=== PATIENT | male | born 1970 | race Caucasian/White ===

== ENCOUNTER → 2016-08-05 | Outpatient (CLI) | payer OTHER ==
--- NOTE | 2016-08-05 22:25 | PN ---
This is a 46-year-old male patient with morbid obesity, COPD, severe obstructive sleep apnea, chronic hypoxic respiratory failure and chronic hypercapnic respiratory failure with right-sided heart failure. The patient is a chronic smoker. The patient also suffers from severe obstructive sleep apnea/obesity hypoventilation syndrome/chronic hypercapnic respiratory failure. The patient was seen in the office in April 2016. Back then he was having difficulties with older CPAP unit which was essentially broken and he was also having difficulties with his CPAP mask, which he had duct taped and made multiple adjustments to keep it running. I gave the patient a loaner CPAP unit and I put him on CPAP pressure of 17 cm of water. I also gave him an AirFit F10 full face mask. The patient was supposed to come back for reevaluation and the intention was to give him a new CPAP machine. The patient failed to show up over the past 3 months and he is coming in today for the above-mentioned problems. I checked his compliancy on his loaner CPAP machine and the treatment is very successful as the patient is sleeping more than 9 hours on average and his AHI while on treatment is down to 1.6. He is still set at a CPAP pressure of 17 cm of water. He has no complaints. 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 He does longer distances and all the way down to [place]. He is on oxygen at all times and I checked him on 2 liters and his pulse ox around 88%. He is still smoking unfortunately. BP is 148/80, pulse 100, respiration 16, temperature 98.1, saturation is 89% on 2 liters of oxygen by nasal cannula. Weight is 419. Height is 5 foot 10. Body mass index 60. GENERAL APPEARANCE: Obese, calm, comfortable. HEENT: Crowding posterior pharynx. There is no goiter or neck mass. Uvula is not seen. LUNGS: Diminished; otherwise clear. Heart sounds are distant positive S1, S2. ABDOMEN: Soft, obese, nontender. Organs cannot be palpated. No ascites. No direct tenderness. No rebound tenderness or guarding. EXTREMITIES: Chronic edema lower extremities bilaterally. IMPRESSION: 1. Severe obstructive sleep apnea, currently utilizing CPAP at a pressure of 17 cm of water and treatment has been successful yet the patient needs to be evaluated to be confirmed and offered a new CPAP unit. 2. Hypersomnia, improved with CPAP therapy. 3. Morbid obesity with a body mass index of 60. 4. Chronic obstructive pulmonary disease. 5. Chronic hypoxic respiratory failure. 6. Chronic hypercapnic respiratory failure. 7. Secondary erythrocytosis. 8. Right-sided heart failure. 9. Chronic lower extremity edema. 10. Hypertension. 11. History of smoking. PLAN: 1. Set up this patient for a split-night study to confirm and at the same time offer treatment. I think the patient will ultimately need a new CPAP machine. May still use the AirFit F10 fullface mask. The pressure needs to be determined at time of the titration; however, it is going to be probably a pressure of 17 cm of water. The need for oxygen will be also decided at the time of the titration. 2. Encourage weight loss. 3. Smoking cessation counseling. 4. Oxygen therapy at all times knowing that the patient is chronic hypoxemic. 5. Diuretics to improve lower extremity edema. 6. Follow-up with the pulmonary clinic, follow up with Dr. Roth and follow up with me in the office following the split-night study.
== END | disposition home or self-care (01) ==
LOC: SLEEP 13:34
PROVIDERS: ATTEND Internal Medicine Critical Care Medicine
DX: G47.33 Obstructive sleep apnea (adult) (pediatric) (principal); G47.10 Hypersomnia, unspecified; E66.01 Morbid (severe) obesity due to excess calories; Z68.44 Body mass index [BMI] 60.0-69.9, adult; J44.9 Chronic obstructive pulmonary disease, unspecified; J96.11 Chronic respiratory failure with hypoxia; J96.12 Chronic respiratory failure with hypercapnia; D75.1 Secondary polycythemia; R60.0 Localized edema; I10 Essential (primary) hypertension; F17.210 Nicotine dependence, cigarettes, uncomplicated

== ENCOUNTER 2016-12-14 21:34 | Emergency (ER) | payer OTHER ==
[2016-12-14 22:12] VITALS: BP 141/79; PULSE 107; RESP 20; TEMP 98.1
--- NOTE | 2016-12-14 22:47 | ED ---
Lower Extremity Injury HPI - General Chief Complaint: Extremity Injury, Lower Stated Complaint: Foot Pain Time Seen by Provider: 12/14/16 22:23 Source: patient Mode of arrival: wheelchair Limitations: no limitations - History of Present Illness Initial Comments: Patient is a 46-year-old male with medical history significant for chronic hypoxic respiratory failure on home oxygen, obstructive sleep apnea, obesity, and chronic obstructive pulmonary disease presenting to the emergency department with chief complaint of right foot pain and swelling. Patient states that he was trying to loose weight and believe he has been overexerting his foot by walking too much. Patient states that he started experiencing right foot pain approximately 2 weeks ago which has progressively increased in intensity and patient states he is now having a difficult time putting any weight on his foot. Patient mostly complains of pain to the dorsal aspect of his right foot proximal to his third fourth and fifth toe. Patient denies previous injury or surgery to his right lower extremity. Patient is currently rating his pain 0 out of 10, but 8/10 with movement and walking. He states he is taking Motrin for pain at home which provides relief. Patient denies recent illness, fevers, nausea, vomiting, increased shortness of breath, chest pain, or abdominal pain. Patient states he is on oxygen and follows with Dr. Blanco in the outpatient setting. Patient states he is on 3 L of oxygen at home but his battery on his tank is running low so he turned it down to 2 L until he get back home and charge it. Patient states that his oxygen saturation is usually 87 or 88%. Patient states he has an appointment to see Dr. Blanco early next week. - Related Data Home Medications Medication Instructions Recorded Confirmed Bisoprolol-Hctz 10-6.25 mg [Ziac 1 each PO DAILY 09/30/15 12/14/16 10-6.25] Furosemide [Lasix] 40 mg PO BID 09/30/15 12/14/16 Albuterol Inhaler [Ventolin Hfa 1 - 2 puff INHALATION Q6HR PRN 12/14/16 12/14/16 Inhaler] Allergies Allergy/AdvReac Type Severity Reaction Status Date / Time No Known Allergies Allergy Verified 09/30/15 16:22 Review of Systems ROS Statement: Those systems with pertinent positive or pertinent negative responses have been documented in the HPI. ROS Other: All systems not noted in ROS Statement are negative. Past Medical History Past Medical History: Blood Disorder, Hypertension Additional Past Medical History / Comment(s): ENLARGED HEART History of Any Multi-Drug Resistant Organisms: None Reported Past Surgical History: Orthopedic Surgery Past Psychological History: No Psychological Hx Reported Smoking Status: Current every day smoker Past Alcohol Use History: None Reported Past Drug Use History: None Reported General Exam Limitations: no limitations General appearance: alert, in no apparent distress Head exam: Present: atraumatic, normocephalic, normal inspection Eye exam: Present: normal appearance Respiratory exam: Present: decreased breath sounds Cardiovascular Exam: Present: regular rate, normal rhythm, tachycardia, normal heart sounds GI/Abdominal exam: Present: soft, normal bowel sounds. Absent: distended Right Lower Leg exam: Present: dislocation (Chronic venous stasis noted to bilateral lower extremities) Ankle exam: Present: normal inspection, full ROM. Absent: tenderness, swelling Foot/Toe exam: Present: tenderness (Tenderness proximal to third fourth and fifth toe), swelling Neurovascular tendon exam: Present: no vascular compromise. Absent: motor deficit, sensory deficit, tendon deficit, extremity cold to touch, pallor, foot drop, significant pain with passive ROM of distal joint Gait: not tested/not observed Neurological exam: Present: alert, oriented X3, other (No focal deficits noted) Psychiatric exam: Present: normal affect, normal mood Skin exam: Present: warm, dry Course Vital Signs 12/14/16 12/14/16 22:06 23:27 Temperature 98.1 F Pulse Rate 107 H Respiratory 20 Rate Blood Pressure 141/79 O2 Sat by Pulse 84 L 90 L Oximetry Medical Decision Making - Medical Decision Making Right foot pain without acute fracture or dislocation. X-ray with evidence of mild degenerative changes of the first MTP joint; generalized osteopenia; generalized soft tissue swelling about the foot. Tru wrap applied to right foot. Patient instructed to elevate foot as much as possible, continue Motrin and ice. Patient instructed to follow-up with primary care physician and orthopedic service as directed. Patient agrees with treatment plan. Patient instructed to return to the emergency department with any new or worsening symptoms. Discharge instructions and return parameters reviewed. - Radiology Data Radiology results: report reviewed Right foot x-ray: No acute fracture or dislocation identified. Mild degenerative changes of the first MTP joint. Generalized osteopenia. Marked generalized soft tissue swelling about the foot. As read by radiologist Dr. Davis. Disposition Clinical Impression: Right foot pain, Osteopenia determined by x-ray Disposition: HOME SELF-CARE Condition: Good Instructions: Arthralgia (ED) Additional Instructions: Continue Motrin every 4-6 hours for pain up to 5 days. Continue Tru wrap for swelling. Elevate right lower extremity as much as possible. Apply ice for comfort as needed. Follow-up with primary care physician and orthopedic service as directed. Please return to the emergency department if symptoms do not improve or get worse. Referrals: Jasson Roth MD [Primary Care Provider] - 1-2 days Bobbi Tsang PAC [PHYSICIAN CEILING CLEANER] - 1-2 days Time of Disposition: 23:44
--- NOTE | 2016-12-14 23:26 | XR ---
EXAM: XR Right Foot Complete, 3 or More Views CLINICAL HISTORY: Reason: Right foot swelling 2 weeks TECHNIQUE: Frontal, lateral and oblique views of the right foot. COMPARISON: None FINDINGS: Bones/joints: No acute fracture or dislocation identified. Mild degenerative changes of the first MTP joint. Generalized osteopenia. Soft tissues: Marked generalized soft tissue swelling about the foot. IMPRESSION: Marked generalized soft tissue swelling of the right foot without acute fracture or dislocation.
== END 2016-12-14 23:51 | disposition home or self-care (01) ==
LOC: EC 21:34
DX: M85.871 Other specified disorders of bone density and structure, right ankle and foot (principal); I10 Essential (primary) hypertension; E66.9 Obesity, unspecified; F17.200 Nicotine dependence, unspecified, uncomplicated; Z68.43 Body mass index [BMI] 50.0-59.9, adult; Z79.899 Other long term (current) drug therapy
CPT/HCPCS: 99283

== ENCOUNTER → 2017-09-29 | Outpatient (CLI) | payer OTHER ==
--- NOTE | 2017-09-29 20:52 | PN ---
PROGRESS NOTE Jamey is doing well. He is coming in for a followup regarding obstructive sleep apnea treatment. The patient has COPD and severe NEGRO and chronic hypoxic and hypercapnic respiratory failure. He recently underwent a titration study during which he was titrated at a BiPAP at a pressure of 24/20 cm of water with oxygen 4 L/minute nasal cannula. He recently obtained his machine and he has not accumulated significant amount of data for us to make a good judgment on his compliancy for now. He is benefitting from the treatment. 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 He is going through some Breathalyzer testing to make sure there is no alcohol consumption. Otherwise he has no complaints. His weight remains stable. He does have some degree of sleepiness during the day improved significantly with BiPAP therapy. PHYSICAL EXAMINATION: BP is 119/61, pulse 101, respirations 16, temperature 98.5, weight is 399. GENERAL APPEARANCE: Obese. Calm and comfortable. HEAD: Atraumatic, normocephalic. NECK short supple, crowding of posterior pharynx, Mallampati class IV. There is no goiter or neck masses. LUNGS diminished otherwise especially lung bases. Few scattered expiratory wheeze. HEART: Sounds regular rate and rhythm. Normal S1, S2. ABDOMEN: Soft, obese. Organs cannot be palpated. There was no direct tenderness, no rebound, tenderness or guarding. EXTREMITIES: Trace edema. There is no cyanosis or clubbing. IMPRESSION: 1. Obstructive sleep apnea AHI of 16.1, currently on BiPAP at a pressure of 24/20 cm of water with an oxygen level of 40 per minute nasal cannula. 2. Severe nocturnal oxygen desaturation. Currently on BiPAP therapy along with oxygen. 3. Chronic obstructive pulmonary disease. 4. Obesity hypoventilation syndrome/Pickwickian features. 5. Chronic hypersomnia. 6. Morbid obesity. BMI of 60.7. 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 8. Chronic obstructive pulmonary disease. 9. Right -sided heart failure. 10.Chronic lower extremity edema. 11.Hypertension. 12.History of smoking and the patient claims that he has quit smoking recently. PLAN: See me back in 90 days to assess clinical response and compliance to his BiPAP treatment. Would like to see more data accumulation in his BiPAP machine to assess the appropriateness of his use. Clinically he is doing okay. He is oxygen dependent. He is not smoking. His COPD stable on Anoro. I would leave his DOT certification to be completed through his . I think he needs to have a Breathalyzer test and should be able to perform the Breathalyzer test as instructed by the clinician. Encourage weight loss. We will see him back in followup in 90 days. MMODL / IJN: [id number] /
== END | disposition home or self-care (01) ==
LOC: SLEEP 13:22
PROVIDERS: ATTEND Internal Medicine Critical Care Medicine
DX: G47.33 Obstructive sleep apnea (adult) (pediatric) (principal); J44.9 Chronic obstructive pulmonary disease, unspecified; G47.10 Hypersomnia, unspecified; E66.01 Morbid (severe) obesity due to excess calories; I50.9 Heart failure, unspecified; R60.0 Localized edema; I10 Essential (primary) hypertension; Z68.44 Body mass index [BMI] 60.0-69.9, adult; Z87.891 Personal history of nicotine dependence; Z99.89 Dependence on other enabling machines and devices